=== PATIENT | female | born 1995 | race African-American/Black ===

== ENCOUNTER 2019-06-04 11:55 | Emergency (ER) | payer MEDICAID ==
[~2019-06-04] VITALS: Ht 170.2 cm; Wt 68.0 kg
[2019-06-04 12:17] VITALS: BP 125/69
== END 2019-06-04 14:16 | disposition home or self-care (01) ==
LOC: ER 11:55
DX: R07.89 Other chest pain (principal)
CPT/HCPCS: 93005; 99283